=== PATIENT | female | born 2000 | race Caucasian/White ===

== ENCOUNTER 2024-05-19 08:58 | Emergency (ER) | payer BC, SELFPAY ==
[2024-05-19 09:18] VITALS: BP 110/75; PULSE 68; RESP 18; TEMP 36.4; O2SAT 100
--- NOTE | 2024-05-19 09:23 | ED.SKABFB ---
HPI - Skin/Abscess/Foreign Bdy General Chief complaint: Skin/Abscess/Foreign Body Stated complaint: Infected Finger Time Seen by Provider: 05/19/24 09:46 Source: patient and RN notes reviewed Mode of arrival: ambulatory Limitations: dementia History of Present Illness HPI narrative: 24-year-old female presents with concern for redness, swelling, tenderness to the base of the nail bed of the 4th digit of the left hand. Reports has been there about a week. Reports she was trying to wait for to go away on its own and it did not. Reports occasionally has small amount of drainage. She denies any decreased sensation, strength how range of motion in the finger or hand. MD complaint: other (Redness) Related Data Allergies Allergy/AdvReac Type Severity Reaction Status Date / Time No Known Allergies Allergy Verified 05/19/24 09:40 Review of Systems Review of Systems: CONSTITUTIONAL: Denies malaise, chills, sweats, or fever. EYES: Denies redness, or discharge. ENT: Denies rhinorrhea, congestion, swollen lips, swollen tongue CARDIOVASCULAR: Denies chest pain, palpitations, or edema. RESPIRATORY: Denies cough or dyspnea. GASTROINTESTINAL: Denies abdominal pain, nausea, vomiting SKIN: Reports redness, swelling. Denies purulent drainage, vesicles, bullae, numbness, pain beyond proportion MUSCULOSKELETAL: Denies joint pain or myalgia. NEUROLOGIC: Denies headache. All systems reviewed & are unremarkable except as noted in HPI and below PMFSH Past Medical History Medical History (Updated 05/19/24 @ 09:53 by Krystle Pruitt NP) Termination of 10/14/2019 Chlamydia Abnormal uterine bleeding Surgical History Surgical History S/P dilation and curettage Family History Family History Sibling Cervical cancer Mother Cervical cancer Social History Social History Smoking status: Never smoker Alcohol intake: current Drinks per week: 7 Substance use: never Comments At time of signature, agree with nursing past medical, surgical, social and family history. There is no relevant family history pertinent to the presenting complaint Exam Narrative: GENERAL: Well-appearing, well-nourished, and in no acute distress. HEAD: Normocephalic, atraumatic. EYES: PERRLA, conjunctivae clear ENT: Mucous membranes moist. NECK: Supple. No lymphadenopathy CHEST: Clear to auscultation. No respiratory distress. HEART: Regular rate and rhythm. SKIN: Warm, dry. Erythema, induration, tenderness, warmth with sharp margins noted to the base of the nail bed of the 4th digit of the left hand without fluctuation or drainage noted. No vesicles, bullae, necrosis, ecchymosis, crepitus noted. NEURO: Alert and oriented x3. PSYCH: Normal mood and affect Course Course Emergency Course: Patient is aware of diagnosis, understands and agrees to treatment plan. Anticipatory guidance given. Patient agrees to follow-up as directed and is aware of reasons to seek care at the emergency department. Portions of this record may have been created with voice recognition software Level of Care: [facility] Visit Vital Signs Vital signs: Vital Signs Temperature 97.5 F L 05/19/24 09:18 Pulse Rate 68 05/19/24 09:18 Respiratory Rate 18 05/19/24 09:18 Blood Pressure 110/75 05/19/24 09:18 Pulse Oximetry 100 05/19/24 09:18 Temperature 97.5 F L 05/19/24 09:18 Pulse Rate 68 05/19/24 09:18 Respiratory Rate 18 05/19/24 09:18 Blood Pressure 110/75 05/19/24 09:18 Pulse Oximetry 100 05/19/24 09:18 Reviewed. MDM - Skin/Abscess/Foreign Bdy MDM Narrative Medical decision making narrative: I evaluated [facility]. History is obtained from patient who is an independent historian and physical exam was performed.? Available medical records were reviewed. ? Exam findings and relevant testing show no acute concerns or changes; patient is non-toxic appearing and is in no distress. No risk factors or findings concerning for epidural abscess, diskitis, vertebral osteomyelitis, cord compression, cauda equina, vertebral fracture or bone malignancy, AAA, or pyelonephritis. Patient instructed to consider further imaging and workup through their primary care physician as an outpatient if symptoms persist. Does not appear at this time to be erythema multiforme, bullous, SJS, TEN; no evidence at this time to suggest RMSF, NSTI, endocarditis or Lyme disease; patient looks well, nontoxic and is tolerating oral intake; no neurologic signs or symptoms; no headache, photophobia or neck pain; afebrile.? Patient does not have history of of penetrating trauma, laceration, blunt trauma, recent surgery, immunosuppression, malignancy, obesity, alcoholism, corticosteroid use.? Discussed the importance of follow-up, patient agrees; question, cellulitis versus necrotizing soft tissue infection versus abscess.?? Patient is appropriate for outpatient treatment and follow-up. Critical Care Time Critical Care Time Critical Care Time: No Discharge Plan Discharge Clinical Impression: Paronychia Patient Disposition: Home, Self-Care Condition: Stable Instructions: Antibiotic Form, Paronychia (ED) Additional Instructions: Soak your nail: Soak your nail in a mixture of equal parts vinegar and water 3 or 4 times each day. This will help decrease inflammation. Apply a warm compress: Soak a washcloth in warm water and place it on your nail. This will help decrease inflammation. Elevate: Raise your nail above the level of your heart as often as you can. This will help decrease swelling and pain. Prop your nail on pillows or blankets to keep it elevated comfortably. Use lotion: Apply lotion after you wash your hands. This will prevent your skin from becoming too dry. Please follow-up with your primary care doctor in the next 1-2 days. If you cannot follow-up with your primary care doctor please go to the ED for any urgent issues. 2) If you have any worsening of symptoms or any other concerns please go to the ED immediately. 3) Please take medications as prescribed andcontinue taking your home medications as usual. Patient Language: Albanian Prescriptions: New sulfamethoxazole-trimethoprim 800-160 mg tablet 1 tablet PO Q12H 7 Days Qty: 14 0RF No Action Lo Loestrin Fe 1 mg-10 mcg (24)/10 mcg (2) tablet 1 tablet PO DAILY Qty: 84 2RF Follow-up/Referrals: PHYSICIAN,[employer] [Primary Care Provider] - Time of Disposition: 09:54
== END 2024-05-19 09:55 | disposition home or self-care (01) ==
PROVIDERS: Emergency Provider Nurse Practitioner
DX: L03.012 Cellulitis of left finger (principal)
CPT/HCPCS: 99213; G0463

== ENCOUNTER 2024-05-28 08:08 | Emergency (ER) | payer BC, SELFPAY ==
--- NOTE | 2024-05-28 08:16 | ED.SKABFB ---
HPI - Skin/Abscess/Foreign Bdy General Chief complaint: Skin/Abscess/Foreign Body Stated complaint: RASH Time Seen by Provider: 05/28/24 08:31 Source: patient Mode of arrival: ambulatory Limitations: no limitations History of Present Illness HPI narrative: 24-year-old female presented for complaint of a red itchy rash over most all of body surface from neck to knees. First noticed this morning. Denies blistering. She completed a course of Bactrim 2 days ago. She currently Denies lip, tongue, or throat swelling, shortness of breath or wheezing, nausea vomiting or dizziness. Denies changes to soap, detergent, lotion, or any other exposures. No one else in the house or any contacts with similar symptoms. has not taken anything for symptoms Related Data Allergies Allergy/AdvReac Type Severity Reaction Status Date / Time Sulfa (Sulfonamide Allergy rash Verified 05/28/24 08:15 Antibiotics) Review of Systems Review of Systems: CONSTITUTIONAL: Denies body aches, fever, chills, or sweats. EYES: Denies visual changes, redness, or discharge. ENT: Denies rhinorrhea, congestion CARDIOVASCULAR: Denies chest pain, palpitations, or edema. RESPIRATORY: Denies cough or dyspnea. GASTROINTESTINAL: Denies abdominal pain, nausea, vomiting, or diarrhea. SKIN: reports itchy red rash MUSCULOSKELETAL: Denies back pain, joint pain, or myalgia. NEUROLOGIC: Denies headache, numbness, tingling, or weakness. [facility] Past Medical History Medical History (Updated 05/28/24 @ 09:20 by Shala Lora, JULISSA) Termination of 10/14/2019 Chlamydia Abnormal uterine bleeding Surgical History Surgical History S/P dilation and curettage Family History Family History Sibling Cervical cancer Mother Cervical cancer Social History Social History Smoking status: Never smoker Alcohol intake: current Drinks per week: 7 Substance use: never Comments At time of signature, I have reviewed and agree with nursing past medical, surgical, social and family history unless otherwise noted. Please see nursing chart for further information. There is no relevant family history pertinent to the presenting complaint Exam Narrative: GENERAL: Well-appearing HEAD: Normocephalic, atraumatic. EYES: conjunctivae clear, and EOMI. ENT: Mucous membranes moist. Oropharynx without edema, erythema or lesions. NECK: Supple. No lymphadenopathy CHEST: Clear to auscultation. speaks full sentences. HEART: Regular rate and rhythm. SKIN: Warm, dry. significant diffuse erythematous papular exanthematous rash noted to neck torso, and upper legs, rash spares face and palms. No blistering or skin peeling. NEURO: Alert and oriented x3. Course Course Emergency Course: Patient is aware of diagnosis, understands and agrees to treatment plan. Anticipatory guidance given. Patient agrees to follow-up as directed and is aware of reasons to seek care at the emergency department. Portions of this record may have been created with voice recognition software Level of Care: Express Care Visit Vital Signs Vital signs: Vital Signs Temperature 98.2 F 05/28/24 08:19 Pulse Rate 77 05/28/24 08:19 Respiratory Rate 16 05/28/24 08:19 Blood Pressure 115/65 05/28/24 08:19 Pulse Oximetry 100 05/28/24 08:19 Temperature 98.2 F 05/28/24 08:19 Pulse Rate 77 05/28/24 08:19 Respiratory Rate 16 05/28/24 08:19 Blood Pressure 115/65 05/28/24 08:19 Pulse Oximetry 100 05/28/24 08:19 Reviewed MDM - Skin/Abscess/Foreign Bdy MDM Narrative Medical decision making narrative: IM Solu-Medrol, Pepcid, Benadryl given Rash appears slightly less erythematous on the neck area, and pt reports feeling less itchy. Pt has no respiratory complications at this time and is advised at length s/s to monitor including danger triangle. She is accompanied by friend who will be driving. Instructed patient to go to nearest ER immediately for any worsening symptoms including but not limited to: fever, spreading rash, pain, sore throat, headache, dizziness, chest pain, trouble breathing, or any symptoms concerning to the patient. Discussed physical exam findings. Advised supportive measures and signs/symptoms to go to the ER. Pt is appropriate for outpt treatment and f/u. Differential Diagnosis Differential diagnosis: Likely abscess of skin or subcutaneous tissue, viral exanthem, urticaria, herpes zoster, allergic reaction to drug, cellulitis, eczema, insect bites and contact dermatitis Discharge Plan Discharge Clinical Impression: Allergic reaction to drug Patient Disposition: Home, Self-Care Condition: Stable Instructions: General Allergic Reaction (ED) Additional Instructions: Take steroids and Pepcid as directed. Start 05/29/24 Benadryl every 8 hours as needed Cool compresses to the sites of itching, avoid hot water. Avoid scratching to reduce the risk of infection Tylenol as needed for pain/fever Sulfa is added to your allergy list. Follow up with your primary care provider as needed Go to the ER immediately for worsening symptoms or concerns ( painful skin blisters, lip, tongue, throat swelling/itching, trouble breathing, vomiting, fever etc) Patient Language: Icelandic Prescriptions: New prednisone 20 mg tablet 20 mg PO DAILY Qty: 18 0RF Rx Instructions: take 3 tablets daily for 3 days, then 2 tablets daily for 3 days then 1 tablet daily for 3 days. Start 05/29/24 famotidine [Pepcid] 40 mg tablet 40 mg PO DAILY Qty: 10 0RF Follow-up/Referrals: PHYSICIAN,[employer] [Primary Care Provider] - Stand Alone Forms: Work/School Release IP Time of Disposition: 09:24
[2024-05-28 08:19] VITALS: BP 115/65; PULSE 77; RESP 16; TEMP 36.8; O2SAT 100
[2024-05-28] MEDS: methylPREDNISolone SOD SUCC 125 MG VIAL IM (08:48)
[2024-05-28] MEDS: diphenhydrAMINE HCl CAP 25 MG CAPSULE 50 MG PO (08:48)
[2024-05-28] MEDS: FAMOTIDINE 20 MG TABLET 40 MG PO (08:48)
== END 2024-05-28 09:28 | disposition home or self-care (01) ==
PROVIDERS: Emergency Provider Nurse Practitioner Family
DX: L27.0 Generalized skin eruption due to drugs and medicaments taken internally (principal); T36.8X5A Adverse effect of other systemic antibiotics, initial encounter
CPT/HCPCS: 96372; 99213; A9270; G0463; J2919